=== PATIENT | male | born 2000 | race Caucasian/White ===

== ENCOUNTER 2023-01-13 10:47 | Emergency (ER) | payer MEDICAID, SELFPAY ==
[2023-01-13 10:48] VITALS: BP 165/92; PULSE 105; RESP 16; TEMP 36.8; O2SAT 97; BMI 27.4
--- NOTE | 2023-01-13 11:22 | ED.VIS.LOWEX ---
HPI History of Present Illness HPI Narrative: Ingrown left great toenail for months. Chief Complaint: Lower Extremity Injury Informant: patient Occured/Mechanism Mechanism/Context: No injury and No blunt trauma Onset/Context/Timing Onset: Month(s) Context: Gradual Onset Timing: Continuous Quality of Pain: Dull and Aching Current Severity: Mild Maximum Severity: Mild Narrative Narrative: 22-year-old male history of prior pneumothorax and treated for hypertension. States that he has an ingrown left toenail for around 7 to 8 months. Is gotten the point they want to get it taken care of today. He denies any fever or chills. Says it is uncomfortable. Prior similar symptoms: No Recent Illness/Hospitalization: No PFSH PFSH Medical History HTN (hypertension) no medical history Home Medications cephalexin 500 mg capsule 500 mg PO Q6 5 days #20 CAPSULES 01/13/23 [Rx Last Taken Unknown] lisinopril 10 mg tablet 10 mg PO DAILY 01/13/23 [History Last Taken Unknown] Allergy/AdvReac Type Severity Reaction Status Date / Time amoxicillin Allergy Hives Verified 01/13/23 10:49 Surgical History no surgical history Social History Smoking Status: Unknown if ever smoked ROS ROS ED ROS Narrative Denies recent illness. Review of Systems ROS Unobtainable: Denies due to encephalopathy Constitutional Constitutional ED: Denies chills or fever(s) Eyes Eyes: Denies blurry vision ENT ENT ED: Denies ear pain Cardiovascular Cardiovascular: Denies chest pain Respiratory/Chest Respiratory/Chest: Denies cough or dyspnea Gastrointestinal Gastrointestinal: Denies abdominal pain Genitourinary Genitourinary ED: Denies dysuria or hematuria Musculoskeletal Musculoskeletal: Denies arthralgias Integumentary Denies abscess Neurologic Neurologic: Denies headache(s) Psychiatric Psychiatric: Denies anxiety or depression Endocrine Endocrinology: Denies polydipsia or polyphagia Hematologic/Lymphatic Hematologic/Lymphatic: Denies easy bleeding Allergic/Immunologic Allergic/Immunologic ED: Denies mouth swelling EXAM Physical Exam Narrative Exam Narrative: 20-year-old male no acute distress. HEENT exam unremarkable. Neck nontender. Lungs clear to auscultation. Chest wall nontender. Heart regular rhythm rate about 100 no murmur. Abdomen soft nontender. Moving all 4 extremities. Left foot, left great toe ingrown nail medially. Red, tender small discharge. No lymphangitic streaking. There is only redness at the medial aspect of the nail and the skin border. Const Vital Signs: 01/13/23 10:48 Temperature 98.3 F Temperature Source Temporal Pulse Rate 105 H Respiratory Rate 16 Blood Pressure 165/92 H Blood Pressure Mean 116 Pulse Ox 97 Oxygen Delivery Method Room Air Positive well nourished and well developed; Negative for obese, cachectic, contractures or unkempt General Appearance ED: well developed and NAD; Negative for unkempt, cachectic or contractures Nutritional Appearance: Negative for cachectic or obese HEENT Reports moist mucous membranes normocephalic and atraumatic; Negative for trauma or tenderness Eyes PERRL General Eye ED: Negative for other Neck full ROM and supple Thyroid: Negative for tender Chest Wall inspection of chest normal Chest: Negative for other Resp normal respiratory effort, no retractions and clear to auscultation bilaterally Effort and Inspection: Negative for pain with movement Auscultation: Negative for rales, rhonchi or wheezes Cardio regular rate, regular rhythm, S1 normal heart sound, S2 normal heart sound and no murmurs Rhythm: Negative for abnormal rhythm GI non-tender, non-distended and no masses Inspection: Negative for abdominal distention Auscultation: normoactive bowel sounds Palpation: soft; Negative for tender or guarding Back/Spine no CVA tenderness General Back: Negative for CVA tenderness Cervical Spine: Negative for cervical spine tenderness Thoracic Spine / Upper Back: Negative for thoracic spinal tenderness Lumbar Spine / Lower Back: Negative for lumbar spinal tenderness Extremity full ROM; Negative for normal to inspection Extremity Narrative: Ingrown left medial toenail. Red tender to the area. No lipogenic streaking. General Extremety ED: Negative for cyanosis General Extremity: Negative for cyanosis Neuro oriented x3, CN's II-XII intact bilaterally and moves all extremities Sensorium / Orientation: alert, oriented to person, oriented to place and oriented to time; Negative for orientation impaired, confused, lethargic or stuporous Motor Exam: strength 5/5 throughout Psych mental status grossly normal Appearance: Negative for unkempt Speech: No other Mood & Affect: Negative for anxious Skin no wounds Skin Narrative: Left ingrown toenail. Lesions: no lesions Rashes: no rashes Trauma: Negative for abrasion MDM MDM MDM Narrative Medical decision making narrative: Patient has a left great, ingrown toenail is infected. He and I discussed options. We will resect and remove about a third to half the nail. Area be digitally blocked with lidocaine. Procedures Other Procedures Procedure(s): Right ingrown toenail. Digital block with lidocaine. Once proper anesthetic was obtained. Area was cleaned prior to digital block. I undermined the medial third of the nail. And remove the medial third of the nail. Patient tolerated procedure well. It was irrigated clean. Nurses will place a dressing. He was instructed on wound care. Discharge Plan Triage Chief Complaint: Lower Extremity Injury ED Provider: Lee Martinez Dx/Rx/DC Orders Clinical Impression: Ingrowing right great toenail Instructions: ED Ingrown Toenail, Excised Prescriptions: New cephalexin 500 mg capsule 500 mg PO Q6 5 Days Qty: 20 0RF No Action lisinopril 10 mg tablet 10 mg PO DAILY Label Comments: TAKE 1 TABLET BY MOUTH ONCE DAILY [facility] Referrals[facility] Dre Worthington DPM [Med Staff - Active Staff] - 1 Week if not improving [facility]Primary [facility] - 1 Week if not improving Activity Restrictions/Additional Instructions: Motrin and Tylenol for pain. Warm soaks. Keep the area clean and dry. Dry thoroughly after bathing. The antibiotic Keflex 1 pill 4 times a day for 5 days. Follow-up with podiatry as needed. Disposition Disposition: Home, Self Care
[2023-01-13] MEDS: Lidocaine 1% (20 ml mdv) 20 ML Vial 10 ML INFILT (11:26)
[2023-01-13 12:58] VITALS: BP 129/74; PULSE 57; RESP 16; O2SAT 97
== END 2023-01-13 13:00 | disposition home or self-care (01) ==
PROVIDERS: Emergency Provider Emergency Medicine; Referring Provider Emergency Medicine; Visit Provider Emergency Medicine
DX: L60.0 Ingrowing nail (principal); I10 Essential (primary) hypertension; Z79.899 Other long term (current) drug therapy
CPT/HCPCS: 11730; 99284

== ENCOUNTER 2024-01-03 15:04 | Emergency (ER) | payer MEDICAID, SELFPAY ==
[2024-01-03 15:05] VITALS: BP 170/90; PULSE 101; RESP 16; TEMP 36.1; O2SAT 99; BMI 33.3
[2024-01-03 16:24] LABS: Absolute Lymphocyte Count 1.85 X10^3/uL (0.83-4.51); Absolute Neutrophil Count 4.6 X10^3/uL (2.0-7.7); Basophil# 0.09 X10^3/uL; Basophil% 1.2 % (0-1); Eosinophil# 0.35 X10^3/uL; Eosinophils% 4.6 % (0-5); Hematocrit 43.3 % (40-54); Hemoglobin 15.5 g/dL (13.0-16.5); Lymphocyte # 1.85 X10^3/ul (0.83-4.51); Lymphocyte % 24.5 % (19-41); Mean Corp Hgb Conc 35.8 g/dL (32-36); Mean Corpuscular Hgb 32.7 pg (27.0-32.0); Mean Corpuscular Volume 91.4 fL (80-94); Mean Platelet Vol. 9.7 fl (6.2-12.0); Monocyte# 0.61 X10^3/uL; Monocyte% 8.1 % (0-10); NRBC Flagged by Analyzer 0 % (0-5); Neutrophil # 4.64 X10^3/uL (2.7-7.7); Neutrophil % 61.5 % (47-70); Platelet Count 298 K/mm3 (150-450); RBC Distribution Width SD 39.8 fl (35.1-43.9); Red Blood Count 4.74 M/mm3 (4.6-6.2); White Blood Count 7.6 K/mm3 (4.4-11.0)
--- NOTE | 2024-01-03 16:29 | ED.VIS.GI ---
HPI HPI - GI History of Present Illness Chief Complaint: Abd Pain Narrative Narrative: 23-year-old male presenting for evaluation. He states that he gets epigastric and right-sided burning in his stomach. Patient states he does have a history of this for the last 3 to 4 months. Patient states that he typically sees [facility] for his blood pressure but has not seen them for this abdominal pain. Patient states that it does not appear to be related to food. He describes a typical daily dilated of Ramen mixed with potato chips and sour cream for breakfast, but also states that he eats breakfast at lunchtime around noon. He states that for dinner he typically eats red meat, chicken patties, perogies etc. Patient states that he drinks about half of the 1.75 L bottle of whiskey every other day. He is reports that 24 hours after he stops drinking he starts to get nausea, body aches, cramping, burning in his abdomen about 24 hours. No seizure history. Patient expresses no concern for detox. Patient denies chest pain, shortness of breath. Patient does take omeprazole daily. He is also on lisinopril. Denies surgical history in his abdomen. [facility] Medical History HTN (hypertension) Home Medications cephalexin 500 mg capsule 500 mg PO Q6 5 days #20 CAPSULES 01/13/23 [Rx Last Taken Unknown] lisinopril 10 mg tablet 10 mg PO DAILY 01/13/23 [History Last Taken Unknown] Allergy/AdvReac Type Severity Reaction Status Date / Time amoxicillin Allergy Hives Verified 01/03/24 15:07 Social History Smoking Status: Never smoker ROS ROS ED Constitutional Constitutional ED: Denies chills, fever(s) or sweats Eyes Eyes: Denies blurry vision or change in vision ENT ENT ED: Denies ear pain or sore throat Cardiovascular Cardiovascular: Denies chest pain, palpitations or racing heartbeat Respiratory/Chest Respiratory/Chest: Denies cough, dyspnea or sputum Gastrointestinal Gastrointestinal: Reports abdominal pain and nausea; Denies constipation, diarrhea or vomiting Genitourinary Genitourinary ED: Denies dysuria, hematuria or urinary frequency Musculoskeletal Musculoskeletal: Denies arthralgias, myalgias or neck pain Integumentary Denies abscess, Abrasions or rash Neurologic Neurologic: Denies headache(s), paresthesias or weakness Psychiatric Psychiatric: Denies anxiety, depression, suicidal ideation or suicidal thoughts Endocrine Endocrinology: Denies polydipsia or polyuria EXAM Physical Exam Const Vital Signs: 01/03/24 15:05 01/03/24 15:05 01/03/24 17:10 Temperature 97 F L 97 F L Temperature Source Temporal Temporal Pulse Rate 101 H 101 H 115 H Respiratory Rate 16 16 16 Blood Pressure 170/90 H 170/90 H 154/95 H Blood Pressure Mean 116 116 114 Pulse Ox 99 99 99 Oxygen Delivery Method Room Air Room Air Room Air Positive well nourished General Appearance ED: NAD; Negative for pallor HEENT Reports moist mucous membranes normocephalic and atraumatic Eyes PERRL and EOMs intact bilaterally Resp normal respiratory effort Cardio regular rate and regular rhythm GI non-tender and non-distended Neuro CN's II-XII intact bilaterally and moves all extremities Sensorium / Orientation: alert Psych mental status grossly normal and thought process normal Skin General Skin Exam: Negative for jaundice or pallor MDM MDM MDM Narrative Medical decision making narrative: Patient presenting with of intermittent abdominal pain over the last 4 months. He admits to a history of EtOH abuse and drinks about half of 1.75 L of whiskey every other day. He states he gets symptomatic withdrawal symptoms. He expresses no desire to detox. Currently his abdomen is soft nontender nondistended. Differential includes gastritis, pancreatitis, colitis, cholecystitis, dehydration, anemia, electrolyte abnormalities, transaminitis. CBC will be obtained to assess white blood cell count, hemoglobin complaints. CMP to assess liver function, renal function and electrolytes. Lipase to assess for pancreatitis. CBC shows normal white blood cell count of 7.6. Hemoglobin stable 15.5. Platelets are normal at 298. LFTs within normal limits with exception of an ALT of 110. EtOH negative. Lipase within normal limits. Patient did not require treatment here and he was offered he states he is pain-free. I suspect this is likely due to EtOH abuse his pain and he has history of GERD I recommended discontinuing use and alcohol. I offered him EtOH detox several times but he declined. I had he and his significant other discussed that it is a still feel like they can go home. I counseled him on foods to avoid and if he needs to return for alcohol detox he is to return as needed. Impression: 1. Abdominal pain 2. EtOH abuse Lab Data Attestation: I reviewed the patient's lab results. Labs: Laboratory Results - last 24 hr 01/03/24 01/03/24 16:10 16:41 WBC 7.6 RBC 4.74 Hgb 15.5 Hct 43.3 MCV 91.4 MCH 32.7 H MCHC 35.8 RDW Std Deviation 39.8 RDW Coeff of Kimmie 12.0 Plt Count 298 MPV 9.7 Immature Gran % (Auto) 0.100 Neut % (Auto) 61.5 Lymph % (Auto) 24.5 [place] % (Auto) 8.1 Eos % (Auto) 4.6 Baso % (Auto) 1.2 H Absolute Neuts (auto) 4.6 Absolute Lymphs (auto) 1.85 Nucleated RBC % 0 Sodium 137 Potassium 3.6 Chloride 102 Carbon Dioxide 27.0 Anion Gap 8 BUN 12 Creatinine 1.08 Estim Creat Clear Calc 113.94 Est GFR (MDRD) Af Amer 108 Est GFR (MDRD) Non-Af 90 BUN/Creatinine Ratio 11.1 Glucose 89 Calcium 9.5 Total Bilirubin 0.70 AST 35 ALT 110 H Alkaline Phosphatase 48 Total Protein 8.5 H Albumin 4.6 Globulin 3.9 Albumin/Globulin Ratio 1.2 Lipase 25 Ethyl Alcohol 4.0 Discharge Plan Triage Chief Complaint: Abd Pain ED Provider: Doni Serrano Dx/Rx/DC Orders Instructions: ED Abdominal Pain Unkn Cause Male..., ED Alcohol Abuse Prescriptions: No Action lisinopril 10 mg tablet 10 mg PO DAILY Patient Comments: TAKE 1 TABLET BY MOUTH ONCE DAILY cephalexin 500 mg capsule 500 mg PO Q6 5 Days Qty: 20 0RF Primary Care [facility]: [facility] - Disposition Disposition: Home, Self Care
[2024-01-03 16:40] LABS: ALB/GLOB Ratio 1.2 RATIO (0.9-2.4); AST(SGOT) 35 U/L (15-37); Alanine Aminotransfer ALT/SGPT 110 U/L (16-61); Albumin, Serum 4.6 g/dL (3.2-5.0); Alkaline Phosphatase 48 U/L (45-117); Anion Gap 8 (5-15); BUN 12 mg/dL (7-18); BUN/Creat Ratio 11.1 RATIO (10-20); Calcium,Total 9.5 mg/dL (8.5-10.1); Chloride 102 mmol/L (98-107); Creatinine, Serum 1.08 mg/dL (0.70-1.30); EST Glomerular Filtration Rate 90 mL/min (>60); Est Glom Filt Rate - Afr Amer 108 mL/min (>60); Estimated Creatinine Clearance 113.94 ml/min; Globulin 3.9 g/dL (2.2-4.2); Glucose 89 mg/dL (74-106); Lipase 25 U/L (13-75); Potassium 3.6 mmol/L (3.5-5.1); Protein, Total 8.5 g/dL (6.4-8.2); Sodium Level 137 mmol/L (136-145)
[2024-01-03 17:10] VITALS: BP 154/95; PULSE 115; RESP 16; O2SAT 99
[2024-01-03 17:54] VITALS: BP 154/95; PULSE 115; RESP 16; TEMP 36.1; O2SAT 99
== END 2024-01-03 17:55 | disposition home or self-care (01) ==
PROVIDERS: Emergency Provider Student in an Organized Health Care Education/Training Program; Visit Provider Student in an Organized Health Care Education/Training Program
DX: R10.9 Unspecified abdominal pain (principal); F10.10 Alcohol abuse, uncomplicated; I10 Essential (primary) hypertension; Z79.899 Other long term (current) drug therapy
CPT/HCPCS: 80053; 80320; 83690; 85025; 99283; A4216; G0480